=== PATIENT | female | born 1945 | race Caucasian/White ===

== ENCOUNTER → 2017-06-17 09:29 | Outpatient (CLI) | payer MEDICARE, OTHER, SELFPAY ==
[2017-06-17 12:57] LABS: Hemoglobin A1c 6.6 % (4.2-6.3)
[2017-06-17 13:01] LABS: AST(SGOT) 41 U/L (15-37); Alanine Aminotransfer ALT/SGPT 47 U/L (13-56); Albumin, Serum 3.9 g/dL (3.2-5.0); Alkaline Phosphatase 93 U/L (45-117); Anion Gap 9 (5-15); BUN 12 mg/dL (7-18); BUN/Creat Ratio 15.2 RATIO (10-20); Calcium,Total 9.8 mg/dL (8.5-10.1); Chloride 106 mmol/L (98-107); Cholesterol 268 mg/dL (200); Creatinine, Serum 0.79 mg/dL (0.55-1.02); EST Glomerular Filtration Rate 77 mL/min (>60); Est Glom Filt Rate - Afr Amer 93 mL/min (>60); Glucose 117 mg/dL (74-106); High Density Lipoprotein 40 mg/dL; Potassium 3.6 mmol/L (3.5-5.1); Protein, Total 7.9 g/dL (6.4-8.2); Sodium Level 141 mmol/L (136-145); Triglycerides 222 mg/dL; Very Low Density Lipoprotein 44 mg/dL (5-40)
== END ==
PROVIDERS: Family Provider Family Medicine; PCP Family Medicine; Visit Provider Family Medicine
DX: E66.9 Obesity, unspecified (principal); I10 Essential (primary) hypertension
CPT/HCPCS: 36415; 80053; 80061; 83036; 84443

== ENCOUNTER → 2017-07-04 13:00 | Outpatient (CLI) | payer MEDICARE, OTHER, SELFPAY ==
[2017-07-04 14:55] LABS: T4 Free Direct 0.84 ng/dL (0.76-1.46)
== END ==
PROVIDERS: Family Provider Family Medicine; PCP Family Medicine; Visit Provider Nurse Practitioner Family
DX: E03.9 Hypothyroidism, unspecified (principal)
CPT/HCPCS: 36415; 84439

== ENCOUNTER 2017-08-01 08:53 | Outpatient (RCR) | payer MEDICARE, OTHER, SELFPAY | END 2017-08-10 23:59 | LOC: NS 08:53 | PROVIDERS: Family Provider Family Medicine; PCP Family Medicine; Visit Provider Nurse Practitioner Family | DX: E11.9 Type 2 diabetes mellitus without complications (principal); E66.9 Obesity, unspecified; Z68.41 Body mass index [BMI] 40.0-44.9, adult; Z71.3 Dietary counseling and surveillance | CPT/HCPCS: 97802 ==

== ENCOUNTER → 2018-11-06 13:56 | Outpatient (CLI) | payer MEDICARE, OTHER, SELFPAY ==
[2018-11-06 13:42] VITALS: BMI 43.0
--- NOTE | 2018-11-06 13:58 | RAD_ITS ---
STUDY: X-RAY - LEFT KNEE REASON FOR EXAM: Female, 73 years old. Chronic knee pain. TECHNIQUE: 4 view(s) of the knee. COMPARISON: None. FINDINGS: Normal visualized distal femur. Normal visualized proximal tibia and fibula. Normal proximal tibiofibular articulation. There is no demonstrated fracture. Normal medial femorotibial compartment. 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 Normal patellofemoral articulation. There is no demonstrated joint effusion. The soft tissue structures are unremarkable. RAD/Knee 4 or More Views IMPRESSION: No acute abnormality. No fracture or dislocation. Severe lateral tibiofemoral compartment degenerative changes. Electronically Signed: Pete Warren MD at 19:23 EDT , Service support ,
--- NOTE | 2018-11-06 13:58 | RAD_ITS ---
STUDY: X-RAY - RIGHT KNEE REASON FOR EXAM: Female, 73 years old. Chronic pain. TECHNIQUE: 4 view(s) of the knee. COMPARISON: None. FINDINGS: Normal visualized distal femur. Normal visualized proximal tibia and fibula. Normal proximal tibiofibular articulation. There is no demonstrated fracture. Normal medial femorotibial compartment. 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 Normal patellofemoral articulation. There is no demonstrated joint effusion. The soft tissue structures are unremarkable. RAD/Knee 4 or More Views IMPRESSION: No acute fracture or dislocation. Severe degenerative changes of the lateral tibiofemoral compartment. Electronically Signed: Pete Warren MD at 19:28 EDT , Service support ,
== END ==
PROVIDERS: Family Provider Family Medicine; PCP Family Medicine; Referring Provider Physician Assistant; Visit Provider Physician Assistant
DX: M25.561 Pain in right knee (principal); M25.562 Pain in left knee
CPT/HCPCS: 73564

== ENCOUNTER → 2019-01-15 11:05 | Outpatient (CLI) | payer MEDICARE, OTHER, SELFPAY ==
[2019-01-15 10:51] VITALS: BMI 43.0
--- NOTE | 2019-01-15 11:07 | RAD_ITS ---
HISTORY: pain, pt. unable to bear weight, all films done supine ADDITIONAL HISTORY: None provided. TECHNIQUE: Right knee 4 views Number of images including paperwork: 4 COMPARISON: None FINDINGS: BONES: No acute fracture. Mineralization appears decreased. JOINTS: No subluxation. Severe degenerative changes of the lateral compartment. Mild degenerative changes of the medial and patellofemoral compartments. SOFT TISSUES: No distinct foreign body. RAD/Knee 4 or More Views IMPRESSION: Degenerative changes without acute osseous abnormality. at 2250 Reported and signed by: Chiquis Bowman MD Electronically Signed: Chiquis Bowman MD at 22:49 EST Tel , Service support ,
--- NOTE | 2019-01-15 11:07 | RAD_ITS ---
HISTORY: Pain, pt. unable to bear weight ADDITIONAL HISTORY: None provided. TECHNIQUE: Right ankle 3 views Number of images including paperwork: 3 COMPARISON: None FINDINGS: BONES: No acute fracture. Mineralization appears decreased. Plantar spur. JOINTS: No subluxation. SOFT TISSUES: No distinct foreign body. Soft tissue swelling noted dorsally and laterally. RAD/Ankle min 3 Views IMPRESSION: No acute osseous abnormality. Ankle soft tissue swelling. at 4869 Reported and signed by: Chiquis Bowman MD Electronically Signed: Chiquis Bowman MD at 22:48 EST Tel , Service support ,
== END ==
PROVIDERS: Family Provider Family Medicine; PCP Family Medicine; Referring Provider Physician Assistant; Visit Provider Physician Assistant
DX: M17.11 Unilateral primary osteoarthritis, right knee (principal); M25.471 Effusion, right ankle; W19.XXXA Unspecified fall, initial encounter
CPT/HCPCS: 73564; 73610

== ENCOUNTER → 2019-01-15 11:45 | Outpatient (CLI) | payer MEDICARE, OTHER, SELFPAY ==
[2019-01-15 10:51] VITALS: BMI 43.0
--- NOTE | 2019-01-15 11:46 | RAD_ITS ---
HISTORY: PAIN ADDITIONAL HISTORY: None provided. TECHNIQUE: Right tibia-fibula 2 views Number of images including paperwork: 3 COMPARISON: None FINDINGS: BONES: No acute fracture. Plantar spur. Mineralization appears decreased. JOINTS: No subluxation. Degenerative changes of the knee. SOFT TISSUES: No distinct foreign body. RAD/Tibia & Fibula 2 Views IMPRESSION: Degenerative changes without acute osseous abnormality. at 2251 Reported and signed by: Chiquis Bowman MD Electronically Signed: Chiquis Bowman MD at 22:51 EST Tel , Service support ,
--- NOTE | 2019-01-15 11:46 | RAD_ITS ---
HISTORY: COMPARISON ADDITIONAL HISTORY: None provided. TECHNIQUE: Left ankle 3 views Number of images including paperwork: 6 COMPARISON: Correlation made with right ankle radiograph the same date FINDINGS: BONES: No acute fracture. Mineralization appears decreased. Plantar spur. JOINTS: No subluxation. SOFT TISSUES: No distinct foreign body. RAD/Ankle min 3 Views IMPRESSION: No acute osseous abnormality. at 2251 Reported and signed by: Chiquis Bowman MD Electronically Signed: Chiquis Bowman MD at 22:50 EST Tel , Service support ,
== END ==
PROVIDERS: Family Provider Family Medicine; PCP Family Medicine; Referring Provider Physician Assistant; Visit Provider Physician Assistant
DX: M17.11 Unilateral primary osteoarthritis, right knee (principal); M25.571 Pain in right ankle and joints of right foot; M79.661 Pain in right lower leg; M25.471 Effusion, right ankle; W19.XXXA Unspecified fall, initial encounter
CPT/HCPCS: 73564; 73590; 73610

== ENCOUNTER 2020-08-22 14:04 | Emergency (ER) | payer MEDICARE, OTHER, SELFPAY ==
[2019-07-03 10:21] VITALS: BMI 43.0
[2020-08-22 14:07] VITALS: BP 116/59; PULSE 92; RESP 10; TEMP 35.5; O2SAT 100; BMI 39.7
--- NOTE | 2020-08-22 14:48 | EKG12_ITS ---
Test Reason : WEAKNESS Blood Pressure : / mmHG Vent. Rate : 076 BPM Atrial Rate : 076 BPM P-R Int : 148 ms QRS Dur : 130 ms QT Int : 460 ms P-R-T Axes : 052 -24 049 degrees QTc Int : 517 ms Normal sinus rhythm Right bundle branch block Possible Lateral infarct , age undetermined Inferior infarct , age undetermined Abnormal ECG Confirmed by ADALGISA LLAMAS, HAO ([id number]), newspaper or periodical editor SUSAN PLUMMER ([id number]) on 08/24/2020 11:50:26 AM Referred By: CLARICE Confirmed By:HAO DIANA MD
--- NOTE | 2020-08-22 15:00 | RAD_ITS ---
STUDY: X-RAY CHEST REASON FOR EXAM: Female, 75 years old. Weakness and edema. TECHNIQUE: Single AP portable view of the chest. COMPARISON: None. FINDINGS: EKG electrodes are seen. Minimal increased markings at the left lung base suggestive of linear atelectasis. There is no demonstrated pleural abnormality. Normal size heart. Normal mediastinum and aristides. Normal visualized pulmonary arteries. There is atherosclerotic calcification of the aortic arch with tortuosity. There are diffuse degenerative changes of the visualized thoracic spine. Normal visualized ribs, clavicles, and shoulders. There is no demonstrated abnormality of the visualized soft tissue structures of the upper abdomen. RAD/Chest 1 View (Portable) IMPRESSION: Minimal degree of increased markings at the left lung base suggesting linear atelectasis. Electronically Signed: Derik Reina MD at 15:19 EDT , Service support ,
--- NOTE | 2020-08-22 15:03 | EX.ED.DYSGE1 ---
HPI History of Present Illness Chief Complaint: Weakness Informant: patient Narrative Narrative: Patient is a 75-year-old female with a past medical history of diabetes, hypothyroidism, hypertension who presents to the emergency department from a custodial. They report given what she has had edema for 1 day. The patient states has been there for 2 weeks. Patient does have a DNR CC with her. She does not have any specific complaints on arrival. She denies any chest pain or shortness of breath. No fevers or chills. She has had some erythema of her extremities. She states that this been present for the past 2 weeks as well. She denies any pain in her extremities. No change in moving bowels or urinating. She denies any cough or fever/chills. [facility] Medical History (Updated 08/22/20 @ 20:[address] Blake Ledesma, ) Anxiety Arthritis Asthma Fibromyalgia Hypertension Osteopenia Home Medications acetaminophen 500 mg tablet 500 mg PO Q6H PRN 06/11/17 [History Last Taken Unknown] sodium chloride 0.65 % nasal spray aerosol 1 spray INTRANASAL Q1-4H PRN 06/11/17 [History Last Taken Unknown] coaxfexs-fiwvqwrol-yejqraea 3.5 mg/mL-10,000 unit/mL-0.1% eye drops 1 drp OPHTHALMIC Q12H 12/06/17 [History Last Taken Unknown] fluticasone 250 mcg-salmeterol 50 mcg/dose blistr powdr for inhalation 1 inh INHALATION Q12H #60 ea 01/29/18 [Rx Last Taken Unknown] inhalational spacing device #1 ea 07/18/18 [Rx Last Taken Unknown] montelukast 10 mg tablet 10 mg PO QPM #90 tab 08/13/18 [Rx Last Taken Unknown] mometasone-formoterol HFA 200 mcg-5 mcg/actuation aerosol inhaler 2 puff INHALATION BID #13 g 02/12/19 [Rx Last Taken Unknown] albuterol sulfate 90 mcg/actuation aerosol inhaler 1 puff INHALATION Q6H PRN #8.5 g 04/10/19 [Rx Last Taken Unknown] lorazepam 1 mg tablet 1 mg PO Q12H PRN #60 tab 06/26/19 [Rx Last Taken Unknown] nystatin 100,000 unit/gram topical powder 1 applic TOPICAL BID #60 g 08/12/19 [Rx Last Taken Unknown] alendronate 70 mg tablet 70 mg PO QWEEK #10 tab 12/09/19 [Rx Last Taken Unknown] clotrimazole-betamethasone 1 %-0.05 % topical cream 1 applic TOPICAL BID #45 g 04/08/20 [Rx Last Taken Unknown] fluticasone propionate 50 mcg/actuation nasal spray,suspension 1 spray INTRANASAL BID #9.9 g 04/08/20 [Rx Last Taken Unknown] cephalexin 500 mg PO Q6H 10 Days #40 cap 08/22/20 [Rx Last Taken Unknown] cephalexin 500 mg PO TID 10 Days #30 cap 08/22/20 [Rx Last Taken Unknown] cholecalciferol (vitamin D3) [Vitamin D3] 125 mcg PO DAILY 08/22/20 [History Last Taken Unknown] furosemide 40 mg PO BID 08/22/20 [History Last Taken Unknown] levothyroxine 225 mcg PO DAILY 08/22/20 [History Last Taken Unknown] potassium chloride 10 meq PO DAILY 08/22/20 [History Last Taken Unknown] Allergy/AdvReac Type Severity Reaction Status Date / Time Penicillins Allergy Severe Shortness Verified 03/31/19 16:04 of breath NSAIDS (Non-Steroidal AdvReac Severe unknown Verified 03/31/19 16:04 Anti-Inflamma codine Allergy Severe Unknown Uncoded 03/31/19 16:04 Family History Father Asthma COPD (chronic obstructive pulmonary disease) Hypertension Mother Heart disease Myocardial infarction, Onset Age: 40 Aunt Cancer Surgical History History of tonsillectomy Social History Smoking Status: Never smoker alcohol intake: never substance use type: does not use what type of physical activity do you participate in: walking ROS ROS ED Constitutional Constitutional ED: Denies chills or fever(s) Eyes Eyes: Denies change in vision ENT ENT ED: Denies epistaxis or rhinorrhea Cardiovascular Cardiovascular: Denies chest pain or palpitations Respiratory/Chest Respiratory/Chest: Denies cough, dyspnea or dyspnea on exertion Gastrointestinal Gastrointestinal: Denies abdominal pain, diarrhea, nausea or vomiting Genitourinary Genitourinary ED: Denies dysuria, hematuria or urinary frequency Musculoskeletal Musculoskeletal: Reports other Details: Edema ; Denies back pain or neck pain Integumentary Reports rash Neurologic Neurologic: Denies dizziness, headache(s) or weakness EXAM Physical Exam Const Vital Signs: 08/22/20 14:07 08/22/20 14:15 08/22/20 18:10 Temperature 95.9 F L Temperature Source Temporal Pulse Rate 92 89 Respiratory Rate 10 L 16 Respiratory Pattern Normal Blood Pressure 116/59 L 119/66 Blood Pressure Mean 78 83 Pulse Ox 100 98 Oxygen Delivery Method Room Air Room Air 08/22/20 20:18 Temperature Temperature Source Pulse Rate 82 Respiratory Rate 18 Respiratory Pattern Blood Pressure 119/81 H Blood Pressure Mean Pulse Ox 97 Oxygen Delivery Method Positive well nourished and well developed General Appearance ED: well developed HEENT Reports normocephalic, head/scalp atraumatic and moist mucous membranes Eyes PERRL and EOMs intact bilaterally Neck supple Resp normal respiratory effort and clear to auscultation bilaterally Auscultation: Negative for rales, rhonchi or wheezes Cardio regular rate, regular rhythm and no murmurs GI normal to inspection, nondistended, normoactive bowel sounds and non-tender Palpation: soft; Negative for guarding or rebound tenderness present Extremity normal to inspection Extremity Narrative: Symmetrical edema bilateral lower extremities. There is erythema present. Mild warmth. No significant tenderness. General Extremety ED: Negative for tenderness Neuro no sensory deficits noted Neuro Narrative: Patient is slow to respond to questioning but she is alert and oriented x3. Motor Exam: strength 5/5 throughout Psych mental status grossly normal Skin Skin Narrative: Patient's left arm is erythematous, old ecchymosis region. MDM MDM MDM Narrative Medical decision making narrative: Patient presents to the ED from custodial. Per report she has had edema for 1 day but patient states this is more likely 2 weeks. She is on Lasix at home. Patient is a DNR CC. She does not have any specific complaints on arrival. Will check basic lab work at this time. Patient's lab work came back positive for leukocytosis which is consistent with what she has had before on the lab work she was sent with. Her hemoglobin was 11.2. Her troponin as well within normal limits as well as her BNP. Her kidney function shows a creatinine of 1.18. Her initial potassium was elevated but this was hemolyzed was repeated and within normal limits. Patient's vital signs within normal limits. Urine does not show any signs of infection. X-ray does not show any signs of pneumonia. With the leukocytosis and swelling and redness we will treat this as a cellulitis. I did call the on-call doctor for Dr. Alexandre and he felt that this would be appropriate to send back. He does not feel that she has any inpatient criteria at this time. The patient's daughter was updated by the nursing staff. This was all discussed with the patient. She is given a first dose of Keflex here. Per the medical record she does have an allergy to penicillin with shortness of breath. No obvious anaphylaxis noted. I did discuss this with the patient and she believes that she has had Keflex before. She is already on Bactrim. She otherwise has remained stable throughout ED stay. Lab Data Labs: Laboratory Results - last 24 hr 08/22/20 08/22/20 08/22/20 15:45 15:45 15:45 WBC 17.7 H RBC 3.10 L Hgb 11.2 L Hct 33.5 L MCV 108.1 H MCH 36.1 H MCHC 33.4 RDW Std Deviation 64.7 H RDW Coeff of Aung 16.4 H Plt Count 227 MPV 10.7 Immature Gran % (Auto) 1.800 H Neut % (Auto) 78.5 H Lymph % (Auto) 10.[address] [place] % (Auto) 6.9 Eos % (Auto) 2.0 Baso % (Auto) 0.4 Absolute Neuts (auto) 13.9 H Absolute Lymphs (auto) 1.83 Nucleated RBC % 0 Differential Comment SCANNED Sodium 135 L Potassium 6.8 H* Chloride 107 Carbon Dioxide 14.0 L Anion Gap 14 BUN 49 H Creatinine 1.18 H Estim Creat Clear Calc 37.64 Est GFR (MDRD) Af Amer 58 L Est GFR (MDRD) Non-Af 48 L BUN/Creatinine Ratio 41.5 H Glucose 131 H Calcium 8.4 L Total Bilirubin 0.60 AST 55 H ALT 23 Alkaline Phosphatase 169 H Troponin I High Sens 29.0 B-Natriuretic Peptide 37.8 Total Protein 5.4 L Albumin 1.3 L Globulin 4.1 Albumin/Globulin Ratio 0.3 L Urine Color Urine Clarity Urine pH Ur Specific [place] Urine Protein Urine Glucose (UA) Urine Ketones Urine Occult Blood Urine Nitrite Urine Bilirubin Urine Urobilinogen Ur Leukocyte Esterase Urine RBC Urine WBC Ur Squamous Epith Cells Urine Bacteria Hyaline Casts Urine Mucus 08/22/20 08/22/20 17:06 18:00 WBC RBC Hgb Hct MCV MCH MCHC RDW Std Deviation RDW Coeff of Aung Plt Count MPV Immature Gran % (Auto) Neut % (Auto) Lymph % (Auto) [place] % (Auto) Eos % (Auto) Baso % (Auto) Absolute Neuts (auto) Absolute Lymphs (auto) Nucleated RBC % Differential Comment Sodium Potassium 5.1 Chloride Carbon Dioxide Anion Gap BUN Creatinine Estim Creat Clear Calc Est GFR (MDRD) Af Amer Est GFR (MDRD) Non-Af BUN/Creatinine Ratio Glucose Calcium Total Bilirubin AST ALT Alkaline Phosphatase Troponin I High Sens B-Natriuretic Peptide Total Protein Albumin Globulin Albumin/Globulin Ratio Urine Color Yellow Urine Clarity Sl. Cloudy Urine pH 5.0 Ur Specific [place] 1.015 Urine Protein Negative Urine Glucose (UA) Normal Urine Ketones Negative Urine Occult Blood 150 H Urine Nitrite Negative Urine Bilirubin Negative Urine Urobilinogen Normal Ur Leukocyte Esterase 25 H Urine RBC 0 SEEN Urine WBC 0-5 SEEN Ur Squamous Epith Cells 0-5 SEEN Urine Bacteria 0 SEEN Hyaline Casts >100 SEEN Urine Mucus 0 SEEN Radiography Diagnostic Testing: Radiology Impression Chest X-Ray 08/22/20 15:00 IMPRESSION: Minimal degree of increased markings at the left lung base suggesting linear atelectasis. Electronically Signed: Derik Reina MD at 15:19 EDT , Service support , EKG Initial EKG: Attestation: I personally reviewed and interpreted this EKG as follows: (Rate of 76 bpm normal sinus rhythm. Prolonged QRS of 130 with right bundle branch block. There are some T wave inversions in the anterior leads. No significant ST elevations or depressions.) Discharge Plan Triage Chief Complaint: Weakness ED Provider: Blake Ledesma Dx/Rx/DC Orders Clinical Impression: Edema, peripheral, Cellulitis, Leukocytosis Instructions: ED Cellulitis Prescriptions: New cephalexin 500 mg capsule 500 mg PO TID 10 Days Qty: 30 RF: 0 cephalexin 500 mg capsule 500 mg PO Q6H 10 Days Qty: 40 RF: 0 No Action acetaminophen [Tylenol Extra Strength] 500 mg tablet 500 mg PO Q6H PRN (Reason: Pain) RF: 0 sodium chloride [Saline Nasal] 0.65 % aerosol,spray 1 spray INTRANASAL Q1-4H PRN (Reason: Nasal Congestion) RF: 0 neomycin-polymyxin B-dexameth 3.5mg/mL-10,000 unit/mL-0.1 % drops,suspension 1 drp OPHTHALMIC Q12H RF: 0 furosemide 40 mg tablet 40 mg PO BID RF: 0 levothyroxine 150 mcg tablet 225 mcg PO DAILY RF: 0 cholecalciferol (vitamin D3) [Vitamin D3] 125 mcg (5,000 unit) Tablet 125 mcg PO DAILY RF: 0 potassium chloride 10 mEq tablet extended release 10 meq PO DAILY RF: 0 Advair Diskus 250-50 mcg/dose blister with device 1 inh INHALATION Q12H Qty: 60 RF: 3 (DME) E-Z Spacer spacer See Dose Instructions .ROUTE .MEDSUPPLY Qty: 1 RF: 0 montelukast 10 mg tablet 10 mg PO QPM Qty: 90 RF: 3 Dulera 200-5 mcg/actuation HFA aerosol inhaler 2 puff INHALATION BID Qty: 13 RF: 2 ProAir HFA 90 mcg/actuation HFA aerosol inhaler 1 puff INHALATION Q6H PRN (Reason: shortness of breath or wheezing) Qty: 8.5 RF: 1 lorazepam 1 mg tablet 1 mg PO Q12H PRN (Reason: anxiety) Qty: 60 RF: 3 nystatin [Nystop] 100,000 unit/gram powder 1 applic TOPICAL BID Qty: 60 RF: 3 alendronate 70 mg tablet 70 mg PO QWEEK Qty: 10 RF: 2 clotrimazole-betamethasone 1-0.05 % cream 1 applic TOPICAL BID Qty: 45 RF: 1 fluticasone propionate [Flonase Allergy Relief] 50 mcg/actuation spray,suspension 1 spray INTRANASAL BID Qty: 9.9 RF: 2 Primary Care Provider: Leonardo Lau Referrals: Leonardo Lau MD [Primary Care Provider] - 2 Days Disposition Disposition: Assisted Living Discharge Location: Other SNF not listed Discharge Date/Time: 08/22/20 21:24
[2020-08-22 15:59] LABS: Absolute Lymphocyte Count 1.83 X10^3/uL (0.83-4.51); Absolute Neutrophil Count 13.9 X10^3/uL (2.0-7.7); Basophil# 0.07 X10^3/uL; Basophil% 0.4 % (0-1); Eosinophil# 0.36 X10^3/uL; Hematocrit 33.5 % (37-47); Hemoglobin 11.2 g/dL (12.0-15.0); Lymphocyte # 1.83 X10^3/ul (0.83-4.51); Lymphocyte % 10.4 % (19-41); Mean Corp Hgb Conc 33.4 g/dL (32-36); Mean Corpuscular Hgb 36.1 pg (27.0-32.0); Mean Corpuscular Volume 108.1 fL (81-99); Mean Platelet Vol. 10.7 fl (6.2-12.0); Monocyte# 1.21 X10^3/uL; Monocyte% 6.9 % (0-10); NRBC Flagged by Analyzer 0 % (0-5); Neutrophil # 13.86 X10^3/uL (2.7-7.7); Neutrophil % 78.5 % (47-70); POSITIVE COUNT YES; Platelet Count 227 K/mm3 (150-450); RBC Distribution Width CV 16.4 % (11.6-14.6); RBC Distribution Width SD 64.7 fl (35.1-43.9); White Blood Count 17.7 K/mm3 (4.4-11.0)
[2020-08-22 16:09] LABS: Differential Indicated SCAN CRITERIA MET
[2020-08-22 16:13] LABS: ALB/GLOB Ratio 0.3 RATIO (0.9-2.4); AST(SGOT) 55 U/L (15-37); Alanine Aminotransfer ALT/SGPT 23 U/L (13-56); Albumin, Serum 1.3 g/dL (3.2-5.0); Alkaline Phosphatase 169 U/L (45-117); Anion Gap 14 (5-15); BUN 49 mg/dL (7-18); BUN/Creat Ratio 41.5 RATIO (10-20); Calcium,Total 8.4 mg/dL (8.5-10.1); Chloride 107 mmol/L (98-107); Creatinine, Serum 1.18 mg/dL (0.55-1.02); EST Glomerular Filtration Rate 48 mL/min (>60); Est Glom Filt Rate - Afr Amer 58 mL/min (>60); Estimated Creatinine Clearance 37.64 ml/min; Globulin 4.1 g/dL (2.2-4.2); Glucose 131 mg/dL (74-106); Potassium 6.8 mmol/L (3.5-5.1); Protein, Total 5.4 g/dL (6.4-8.2); Sodium Level 135 mmol/L (136-145)
[2020-08-22 16:35] LABS: Differential Comment SCANNED
[2020-08-22 16:59] LABS: BNP,B-Type NATRIURETIC PEPTIDE 37.8 pg/mL (0-100)
[2020-08-22 17:28] LABS: Potassium 5.1 mmol/L (3.5-5.1)
--- NOTE | 2020-08-22 18:09 | NURSING ---
XLG brown soft/loose stool and urinary incont at this time. Attends changed, isela care provided. Pt has large amount incont breakdown to isela area with bleeding and skin chaffing. Purewick placed.
[2020-08-22 18:10] VITALS: BP 119/66; PULSE 89; RESP 16; O2SAT 98
[2020-08-22 18:17] LABS: Bacteria 0 SEEN /hpf (None Seen); Mucous, Urine 0 SEEN /hpf (<or=2+); Red Blood Cells-Urine 0 SEEN /hpf (0-5)
[2020-08-22 18:30] LABS: Color, Urine Yellow (Yellow); Glucose, Dipstick Normal (Normal); Ketone-Dipstick Negative (Negative); Leukocyte Esterase-Dipstick 25 /ul (Negative); Nitrite-Dipstick Negative (Negative); Occult Blood-Urine 150 /ul (Negative); Protein-Dipstick Negative (Negative); Specific Gravity, Urine 1.015 (1.002-1.030); Urine Bilirubin Dipstick Negative (Negative); Urine Clarity Sl. Cloudy (Clear); Urine Urobilinogen Normal (Normal)
[2020-08-22 18:37] LABS: Squamous Epithelial Cells - UA 0-5 SEEN /hpf (5-10); White Blood Cells 0-5 SEEN /hpf (0-5)
[2020-08-22 18:39] LABS: Hyaline Cast >100 SEEN /lpf (0-5)
[2020-08-22] MEDS: Cephalexin 250 MG Capsule 500 MG PO (20:14)
[2020-08-22 20:18] VITALS: BP 119/81; PULSE 82; RESP 18; O2SAT 97
--- NOTE | 2020-08-22 21:22 | ED.RN ---
report was called to [facility] home.
== END 2020-08-22 21:24 | disposition home or self-care (01) ==
PROVIDERS: Emergency Provider Emergency Medicine; PCP Family Medicine
DX: L03.116 Cellulitis of left lower limb (principal); R60.0 Localized edema; L03.115 Cellulitis of right lower limb; D72.829 Elevated white blood cell count, unspecified; I45.10 Unspecified right bundle-branch block; I10 Essential (primary) hypertension; J45.909 Unspecified asthma, uncomplicated; F41.9 Anxiety disorder, unspecified; E11.9 Type 2 diabetes mellitus without complications; M79.7 Fibromyalgia; E03.9 Hypothyroidism, unspecified; M19.90 Unspecified osteoarthritis, unspecified site; M85.80 Other specified disorders of bone density and structure, unspecified site; Z79.899 Other long term (current) drug therapy; Z66 Do not resuscitate
CPT/HCPCS: 36415; 71045; 80053; 81001; 83880; 84132; 84484; 85025; 93005; 99285; P9612; A4216